=== PATIENT | male | born 1980 | race Caucasian/White ===

== ENCOUNTER 2018-04-24 22:01 | Emergency (ER) | payer OTHER ==
[~2018-04-24] VITALS: Ht 170.2 cm; Wt 79.4 kg
[2018-04-24] MEDS ORDERED: LIDOCAINE WITH 8.4% SOD BICARB 3 ML DISP.SYRIN. INJ ONE (22:30)
[2018-04-24] MEDS ORDERED: NEOMY/BACITR/POLYMYXIN OINT PACKET. TP ONE (22:30)
[2018-04-24] MEDS ORDERED: DIPHTH,PERTUSS(ACELL),TET TOX 0.5 ML DISP.SYRIN. VAX IM ONE (22:30)
--- NOTE | 2018-04-24 22:47 | PHYS DOC ---
Past Medical History Past Medical History: No Pertinent History Past Surgical History: No Surgical History Alcohol Use: Occasionally Drug Use: None Adult General Chief Complaint Chief Complaint: LACERATION/AVULSION HPI HPI Patient is a 37 year old male who presents to the emergency room with complaints of left fourth digit pain after his finger was crushed between a elsa and the trailer today at work. Patient states he is unsure when his last tetanus shot was. He states that he is able to move his finger since the event, however movement causes increased pain. Currently, he rates his pain when he states his pain is a 6 out of 10 on the pain scale. He did not take anything for relief of pain prior to arrival. He denies any medical or surgical history. He is not allergic to any medications and does not currently take any medications. Review of Systems Review of Systems Constitutional: Denies fever or chills [] Musculoskeletal: Reports fourth digit pain of right hand after crush injury Integument: Reports 2 lacerations to left fourth digit after crush injury Neurologic: Denies focal weakness or sensory changes [] Current Medications Current Medications Current Medications Medications (Trade) Dose Ordered Sig/Flaco Start Time Stop Time Status Last Admin Dose Admin Diphtheria/ Tetanus/Acell Pertussis (Boostrix) 0.5 ml ONCE ONCE 04/24/18 22:30 04/24/18 22:31 DC 04/24/18 22:52 0.5 ML Lidocaine/Sodium Bicarbonate (Buffered Lidocaine 1%) 6 ml 1X ONCE 04/24/18 22:30 04/24/18 22:31 DC 04/24/18 22:50 6 ML Neomycin/ Polymyxin/ Bacitracin (Triple Antibiotic Ointment) 1 pkt 1X ONCE 04/24/18 22:30 04/24/18 22:31 DC 04/24/18 22:52 1 PKT Allergies Allergies Allergies Coded Allergies Type Severity Reaction Last Updated Verified No Known Drug Allergies 04/24/18 No Physical Exam Physical Exam Constitutional: Well developed, well nourished, no acute distress, non-toxic appearance. [] HENT: Normocephalic, atraumatic, bilateral external ears normal, nose normal. [ ] Eyes: Normal Lungs & Thorax: respirations even and unlabored Skin: Warm, dry, no erythema, 4 lacerations noted to fourth digit of left hand. Laceration #1 is approximately 2 cm distal to the DIP on the anterior surface, laceration #2 is approximately 2 cm on the posterior surface distal to the DIP, laceration #3 is approximately 2 cm on the posterior surface at the DIP, and laceration #4 is located on the lateral aspect of the 3rd finger beween the DIP and PIP and is 2.5 cm long. Extremities: No cyanosis, no clubbing, extension and flexion of L hand 3rd digit are normal, L hand 3rd digit is tender to palpation. Neurologic: Alert and oriented X 3, normal motor function, normal sensory function, no focal deficits noted. [] Psychologic: Affect normal, judgement normal, mood normal. [] EKG EKG [] Radiology/Procedures Radiology/Procedures X-ray of left hand third digit was negative for any acute findings or fractures , read by Dr. Stephens Laceration Repair by me: Anesthesia: 1% buffered lidocaine locally to perform digital block. Location: Distal end of the proximal phalanx of Left hand 3 digit Tendon/Joint/Nerves: No injury Foreign body: None detected after copious irrigation and exploration Technique: Simple Interrupted Sutures Complexity: No subcutaneous sutures/mucosal repair/edge excision Post Closure Length: Laceration #1 5 interrupted sutures with 4-0 Ethilon approximately 2 cm in length Laceration #2 6 interrupted sutures with 4-0 Ethilon approximately 2 cm in length Laceration #3 6 interrupted sutures with 4-0 Ethilon approximately 2 cm in length Laceration #4 6 interrupted sutures with 4-0 Ethilon approximately 2.5 cm in length Antibiotic ointment and a nonstick dressing were applied to the laceration sites. A bulky Tubegauz dressing was applied and then the finger was splinted with an aluminum finger splint. Patient's bleeding was easily controlled in the department and there is no indication of anemia. No evidence of compartment syndrome, neurologic injury, vascular injury, open joint, tendon laceration, or foreign body. Patient is appropriate for outpatient follow up. 48 hour wound check. Scar minimization instructions given.[] Course & Med Decision Making Course & Med Decision Making Pertinent Labs and Imaging studies reviewed. (See chart for details) Laceration repair, x-rays of left hand third digit were negative for any acute fracture findings. Patient has full extension and flexion of the affected digit. Laceration repair as reported above. Patient was instructed to have wound recheck in 48 hours and to have sutures removed in 10 days. He was instructed to keep the aluminum finger splint in place until the sutures have been removed. Hydrocodone was prescribed. Patient is off work for the next 1-2 days. Patient verbalized an understanding of home care, medications, follow-up, and return to ED instructions and was in agreement with the plan of care. [] Dragon Disclaimer Dragon Disclaimer This electronic medical record was generated, in whole or in part, using a voice recognition dictation system. Departure Departure Impression: Primary Impression: Laceration of left middle finger without damage to nail Additional Impressions: Multiple lacerations Crushing injury of left middle finger, initial encounter Disposition: HOME, SELF-CARE Condition: STABLE Referrals: NO PCP (PCP) Patient Instructions: Laceration Care, Adult, [id number] Additional Instructions: Keep the dressing that was applied in the emergency room tonight in place until follow-up wound check. Follow-up with your primary care doctor or return to the emergency room in 24-48 hours to have wound rechecked. Wear the aluminum finger splint until the sutures are removed in 10 days. Once the initial bandage has been removed he can apply antibiotic ointment and a clean bandage to the areas twice daily and as needed. Fill the prescription use it as directed, you may take ibuprofen in addition to the pain medication that was prescribed. He also received a tetanus shot today. Return to the ER if your symptoms worsen. Scripts Hydrocodone Bit/Acetaminophen (HYDROCODONE-APAP 5-325 ) 1 Each Tablet 1 TAB PO PRN Q6HRS PRN for PAIN for 3 Days, #12 TAB 0 Refills Prov: ZOYA ZUNIGA CUTTER GAS 04/25/18 Problem Qualifiers Primary Impression: Laceration of left middle finger without damage to nail Encounter type: initial encounter Foreign body presence: without foreign body Qualified Codes: S61.213A - Laceration without foreign body of left middle finger without damage to nail, initial encounter ZOYA ZUNIGA CUTTER GAS Apr 24, 2018 22:47
[2018-04-25] MEDS ORDERED: HYDR-2758 PO (00:29)
--- NOTE | 2018-04-25 08:43 | RAD ---
FINGER(S) LEFT History: 4th digit crush injury Comparison: None. Findings: 3 views of the left hand with attention to the fourth digit are submitted. No acute fracture is identified. There is a tiny linear radiopacity at the ulnar margin of the distal fourth phalanx separate from the bone. This is difficult to visualize on the lateral view. Impression: 1. No acute fracture identified. There is a tiny linear radiopacity of the ulnar margin of the distal fourth phalanx separate from the bone, may be a small foreign body. Electronically signed by: Bi Stockton MD (04/25/2018 8:40 AM) [id number]
== END 2018-04-25 00:41 | disposition home or self-care (01) ==
LOC: ER 22:01
DX: S61.213A Laceration without foreign body of left middle finger without damage to nail, initial encounter (principal); W23.0XXA Caught, crushed, jammed, or pinched between moving objects, initial encounter; Y93.89 Activity, other specified; Y92.89 Other specified places as the place of occurrence of the external cause; Y99.8 Other external cause status
CPT/HCPCS: 12004; 29130; 73140; 90471; 90715; 99284-25